=== PATIENT | male | born 1985 | race African-American/Black ===

== ENCOUNTER 2022-04-23 14:36 | Emergency (ER) | payer OTHER ==
[~2022-04-23] VITALS: Ht 182.9 cm; Wt 90.7 kg
[~2022-04-23 14:36] MED LIST: CEPH500B PO
[2022-04-23 15:01] LABS: BASOPHILS % (AUTO) 0.9 % (0.0-5.0); EOSINOPHILS % (AUTO) 5.4 % (0.0-8.0); HEMATOCRIT 36.9 % (42-54); LYMPHOCYTES % (AUTO) 23.4 % (21.0-51.0); MEAN CORPUSCULAR HGB CONC 34.1 g/dL (32.0-36.0); MONOCYTES % (AUTO) 12.4 % (3.0-13.0); NEUTROPHILS % (AUTO) 57.4 % (40.0-77.0); PLATELET COUNT (AUTO) 359 K/uL (130-400); RED BLOOD CELL COUNT(AUTO) 4.34 MIL/uL (4.50-6.20); RED CELL DISTRIBUTION WIDTH 13.2 % (11.0-15.5); WHITE BLOOD COUNT (AUTO) 4.3 K/uL (4.8-10.8)
[2022-04-23 15:11] LABS: POTASSIUM 3.7 mmol/L (3.5-5.1)
[2022-04-23 15:16] LABS: ALBUMIN 4.2 g/dL (3.5-5.0); BILIRUBIN,TOTAL 0.9 mg/dL (0.2-1.0); TOTAL PROTEIN, SERUM 8.8 g/dL (6.0-8.3)
[2022-04-23] MEDS ORDERED: ACETAMINOPHEN WITH CODEINE 1 TAB TAB PO ONE (16:30)
[2022-04-23] MEDS ORDERED: CLINDAMYCIN 150 MG CAP PO ONE (16:30)
[2022-04-23] MEDS ORDERED: NAPR500T6 PO (17:05)
[2022-04-23] MEDS ORDERED: CLIN-141 PO (17:05)
[2022-04-23 17:55] VITALS: BP 142/81
== END 2022-04-23 18:04 | disposition home or self-care (01) ==
LOC: EDH 14:36
DX: L03.116 Cellulitis of left lower limb (principal); L03.115 Cellulitis of right lower limb; Z90.89 Acquired absence of other organs; Z79.899 Other long term (current) drug therapy
CPT/HCPCS: 36415; 80053; 85025; 93970